=== PATIENT | male | born 1980 | race Two or more races ===

== ENCOUNTER 2024-01-27 12:03 | Emergency (ER) | payer BC, MEDICAID ==
[~2024-01-27] VITALS: Ht 162.6 cm; Wt 86.2 kg
[2024-01-27] MEDS ORDERED: LIDOCAINE HCL/MPF 1% 30 ML VIAL IJ ONE (12:19)
[2024-01-27] MEDS: IV NS 0.9% 1,000 ML BAG IV ONE (12:24)
[2024-01-27] MEDS: LEVETIRACETAM (500MG) 1,000 MG in IV NS 0.9% 90 ML IV SCH (12:30)
[2024-01-27 12:36] LABS: BASOPHILS % (AUTO) 0.4 % (0.0-2.0); EOSINOPHILS % (AUTO) 0.1 % (0.0-6.0); HEMATOCRIT 39 % (39-51); HEMOGLOBIN 12.9 g/dL (13.5-17.5); LYMPHOCYTES # (AUTO) 0.7 K/uL (0.8-4.8); MEAN CORPUSCULAR HEMOGLOBIN 30 PG (26.0-33.0); MEAN CORPUSCULAR HGB CONC 33 g/dl (31.0-36.0); MEAN CORPUSCULAR VOLUME 92 fL (80-96); MONOCYTES # (AUTO) 0.9 K/uL (0.1-1.30); MONOCYTES % (AUTO) 10.6 % (2.0-12.0); NEUTROPHILS # (AUTO) 6.8 K/uL (1.8-8.9); NEUTROPHILS % (AUTO) 80.9 % (43.0-81.0); PLATELET COUNT (AUTO) 114 K/uL (150-450); RED BLOOD CELL COUNT(AUTO) 4.26 MIL/uL (4.5-6.0); RED CELL DISTRIBUTION WIDTH 16.1 % (11.5-15.0); WHITE BLOOD COUNT (AUTO) 8.4 K/uL (4.3-11.0)
[2024-01-27 12:53] LABS: CALCIUM, SERUM 9.1 mg/dL (8.5-10.1); CARBON DIOXIDE 22 mmol/L (21-32); CHLORIDE 93 mmol/L (98-107); CREATININE 0.8 mg/dL (0.6-1.3); GLUCOSE 115 mg/dL (74-106); SODIUM SERUM 137 mmol/L (136-145); UREA NITROGEN, BLOOD 6 mg/dL (7-18)
[2024-01-27 12:56] LABS: POTASSIUM 2.7 mmol/L (3.5-5.1)
[2024-01-27 13:02] LABS: MAGNESIUM 1.2 mg/dL (1.8-2.4)
[2024-01-27 13:06] LABS: ALANINE AMINOTRANSFERASE 95 U/L (12-78); ALBUMIN 3.6 g/dL (3.4-5.0); ALKALINE PHOSPHATASE 92 U/L (46-116); ASPARTATE AMINOTRANSFERASE 178 U/L (15-37); BILIRUBIN,DIRECT 0.4 mg/dL (0.0-0.2); BILIRUBIN,TOTAL 1.3 mg/dL (0.2-1.0); NT-PRO BNP 82 pg/mL (0-125); TOTAL PROTEIN, SERUM 7.3 g/dL (6.4-8.2)
[2024-01-27] MEDS: POTASSIUM CHLORIDE 20 MEQ POWDER PACKET PO ONE (13:30)
[2024-01-27] MEDS ORDERED: POTASSIUM CHLORIDE 20 MEQ POWDER PACKET ONE (13:34)
[2024-01-27] MEDS ORDERED: LEVE250T2 PO (13:58)
[2024-01-27 14:49] VITALS: BP 128/64; TEMP 98; O2SAT 99
== END 2024-01-27 15:15 | disposition home or self-care (01) ==
LOC: ER 12:11
DX: S01.511A Laceration without foreign body of lip, initial encounter (principal); S09.8XXA Other specified injuries of head, initial encounter; G40.909 Epilepsy, unspecified, not intractable, without status epilepticus; R51.9 Headache, unspecified; Z91.148 Patient's other noncompliance with medication regimen for other reason; Z59.00 Homelessness unspecified; X58.XXXA Exposure to other specified factors, initial encounter; Y93.89 Activity, other specified; Y92.89 Other specified places as the place of occurrence of the external cause; Y99.8 Other external cause status
CPT/HCPCS: 12011; 36415; 70450; 71045; 80048; 80076; 80320; 83735; 83880; 84484; 85025; 93005; 96365; 99285; A6403; J1953; J3490; J7030; G0480